=== PATIENT | female | born 1955 | race Caucasian/White ===

== ENCOUNTER 2016-12-14 16:56 | Inpatient (IN) | payer MEDICAID ==
[2016-12-14 17:42] VITALS: BP 120/75
[2016-12-14] MEDS ORDERED: Maalox 30 mL Cup PO PRN (22:57)
[2016-12-14] MEDS ORDERED: Hydrocodone/APAP 5mg/325mg Tab PO PRN (22:57)
[2016-12-14] MEDS ORDERED: Hydrocodone/APAP 10 mg/325 mg Tab PO PRN (22:57)
[2016-12-14] MEDS ORDERED: Magnesium Hydroxide (MOM) 30 mL UDC PO PRN (22:57)
[2016-12-14 23:32] LABS: % BASOPHILS 0.4 % (0.0-2.0); % EOSINOPHILS 3.7 % (0.0-5.0); % LYMPHOCYTES 15.8 % (20.0-50.0); % MONOCYTES 8.4 % (2.0-10.0); % NEUTROPHILS 71.7 % (40.0-80.0); HEMATOCRIT 43.8 % (35.0-45.0); HEMOGLOBIN 14.4 gm/dL (11.7-15.5); MEAN CELL VOLUME 82.4 fl (81-100); MEAN CORPUSCULAR HGB CONC 32.8 pg (28.0-36.0); MEAN PLATELET VOLUME 8.4 fl; NEUTROPHILE ABSOLUTE 5.8 Th/cmm (1.8-8.0); PLATELET COUNT 168 Th/cmm (150-400); RED BLOOD COUNT 5.31 Mil/cmm (3.80-5.10); RED CELL DISTRIBUTION WIDTH 13.9 % (11.5-20.0); WHITE BLOOD COUNT 8.1 Th/cmm (4.8-10.8)
[2016-12-14 23:41] LABS: ALB/GLOB RATIO 1.3 (1.0-1.8); ALKALINE PHOSPHATASE 72 U/L (34-104); ANION GAP 9.6 (7.0-16.0); BILIRUBIN,TOTAL 0.4 mg/dL (0.3-1.0); BUN - UREA NITROGEN 10 mg/dL (7-25); BUN/CREATININE RATIO 14.3; CALCIUM SERUM 8.4 mg/dL (8.6-10.3); CARBON DIOXIDE 27.9 mEq/L (21.0-31.0); CHLORIDE 103 mEq/L (98-107); CREATININE - SERUM 0.7 mg/dL (0.6-1.2); GLUCOSE 151 mg/dL (70-105); POTASSIUM SERUM 3.5 mEq/L (3.5-5.1); SGOT 14 U/L (13-39); SGPT/ALT 16 U/L (7-52); SODIUM SERUM 137 mEq/L (136-145)
[2016-12-14 23:42] LABS: CHOLESTEROL 100 mg/dL (<200); TRIGLYCERIDES 123 mg/dL (<150)
[2016-12-14 23:46] LABS: URINE BACTERIA NONE SEEN /hpf (NONE SEEN); URINE BILIRUBIN NEGATIVE (NEGATIVE); URINE BLOOD NEGATIVE (NEGATIVE); URINE COLOR YELLOW; URINE EPITHELIAL CELLS RARE /lpf (FEW); URINE GLUCOSE (UA) 100 mg/dL (NEGATIVE); URINE KETONE NEGATIVE (NEGATIVE); URINE PROTEIN NEGATIVE (NEGATIVE); URINE RBC NONE SEEN /hpf (0-5); URINE UROBILINOGEN 0.2 E.U./dL (0.2 - 1.0); URINE WBC 0-2 /hpf (0-5)
[2016-12-15 06:20] LABS: % BASOPHILS 1.8 % (0.0-2.0); % EOSINOPHILS 4.6 % (0.0-5.0); % LYMPHOCYTES 13.3 % (20.0-50.0); % NEUTROPHILS 73.3 % (40.0-80.0); HEMATOCRIT 44.2 % (35.0-45.0); HEMOGLOBIN 14.3 gm/dL (11.7-15.5); MEAN CELL VOLUME 82.8 fl (81-100); MEAN CORPUSCULAR HEMOGLOBIN 26.8 pg (27.0-31.0); MEAN CORPUSCULAR HGB CONC 32.3 pg (28.0-36.0); MEAN PLATELET VOLUME 8.2 fl; NEUTROPHILE ABSOLUTE 4.7 Th/cmm (1.8-8.0); PLATELET COUNT 162 Th/cmm (150-400); RED BLOOD COUNT 5.34 Mil/cmm (3.80-5.10); RED CELL DISTRIBUTION WIDTH 13.7 % (11.5-20.0); WHITE BLOOD COUNT 6.4 Th/cmm (4.8-10.8)
[2016-12-15 06:42] LABS: ALB/GLOB RATIO 1.4 (1.0-1.8); ALKALINE PHOSPHATASE 76 U/L (34-104); ANION GAP 8.9 (7.0-16.0); BILIRUBIN,TOTAL 0.5 mg/dL (0.3-1.0); BUN - UREA NITROGEN 11 mg/dL (7-25); BUN/CREATININE RATIO 18.3; CALCIUM SERUM 8.5 mg/dL (8.6-10.3); CARBON DIOXIDE 27.7 mEq/L (21.0-31.0); CHLORIDE 104 mEq/L (98-107); CREATININE - SERUM 0.6 mg/dL (0.6-1.2); GLUCOSE 167 mg/dL (70-105); POTASSIUM SERUM 3.6 mEq/L (3.5-5.1); SGOT 14 U/L (13-39); SGPT/ALT 16 U/L (7-52); SODIUM SERUM 137 mEq/L (136-145)
--- NOTE | 2016-12-15 10:33 | Diagnostic Imaging Report ---
CHEST X-RAY: AP view INDICATION: Shortness of breath COMPARISON: None FINDINGS: Left basal densities noted. No focal consolidation identified. Mild cardiomegaly is noted. Osseous structures are intact. IMPRESSION: Left basal density likely due to superimposition of soft tissues. A small left effusion is considered less likely. If indicated lateral views may also be obtained for further assessment. No focal consolidation identified Mild cardiomegaly.
[2016-12-15] MEDS: INSULIN ASPART SLIDING SCALE 100 UNITS/ML UNIT SUBQ SCH (21:00)
[2016-12-16 06:02] LABS: % BASOPHILS 0.9 % (0.0-2.0); % EOSINOPHILS 5.2 % (0.0-5.0); % LYMPHOCYTES 17.3 % (20.0-50.0); % MONOCYTES 9.8 % (2.0-10.0); % NEUTROPHILS 66.8 % (40.0-80.0); HEMATOCRIT 45.4 % (35.0-45.0); HEMOGLOBIN 15.1 gm/dL (11.7-15.5); MEAN CELL VOLUME 81.7 fl (81-100); MEAN CORPUSCULAR HEMOGLOBIN 27.1 pg (27.0-31.0); MEAN CORPUSCULAR HGB CONC 33.2 pg (28.0-36.0); MEAN PLATELET VOLUME 8.5 fl; NEUTROPHILE ABSOLUTE 4.2 Th/cmm (1.8-8.0); PLATELET COUNT 169 Th/cmm (150-400); RED BLOOD COUNT 5.56 Mil/cmm (3.80-5.10); RED CELL DISTRIBUTION WIDTH 13.9 % (11.5-20.0); WHITE BLOOD COUNT 6.3 Th/cmm (4.8-10.8)
[2016-12-16 06:38] LABS: ANION GAP 7.3 (7.0-16.0); BUN - UREA NITROGEN 10 mg/dL (7-25); BUN/CREATININE RATIO 16.7; CALCIUM SERUM 8.8 mg/dL (8.6-10.3); CARBON DIOXIDE 30.2 mEq/L (21.0-31.0); CHLORIDE 103 mEq/L (98-107); CREATININE - SERUM 0.6 mg/dL (0.6-1.2); GLUCOSE 136 mg/dL (70-105); POTASSIUM SERUM 3.5 mEq/L (3.5-5.1); SODIUM SERUM 137 mEq/L (136-145)
[2016-12-16] MEDS: INSULIN ASPART SLIDING SCALE 100 UNITS/ML UNIT SUBQ SCH ×4 (06:58→21:53)
[2016-12-16] MEDS: Atorvastatin Calcium 10 MG TAB PO SCH (21:52)
[2016-12-17] MEDS: INSULIN ASPART SLIDING SCALE 100 UNITS/ML UNIT SUBQ SCH ×3 (06:33→17:16)
[2016-12-17] MEDS ORDERED: PHENYLEPHRINE TP PRN (16:49)
[2016-12-17] MEDS: Atorvastatin Calcium 10 MG TAB PO SCH (17:26)
--- NOTE | 2016-12-18 10:34 | History & Physical ---
CHIEF COMPLAINT: Chest pain. HISTORY OF PRESENT ILLNESS: The patient is a 61-year-old female who has been transferred from [facility]. The patient was brought into [facility] from [facility]. The patient at the [facility] presented with a constant chest pressure over 2 weeks. Chest pain was 8/10 on pain scale. Nitroglycerin was given which brought her pain down to 3/10. The patient states chest pain is worse with ambulation. Severe shortness of breath. The patient denies nausea and vomiting. The patient's pain improved with aspirin and nitroglycerin. REVIEW OF SYSTEMS: See history of present illness. ALLERGIES: No known allergies. MEDICATIONS: Metformin. PAST MEDICAL HISTORY: Diabetes mellitus type 2, hypertension, hyperlipidemia, depression. PAST SURGICAL HISTORY: Negative. SOCIAL HISTORY: No reports of smoking, drinking or drug abuse. TRAVEL HISTORY: No history of travel in last 21 days. PHYSICAL EXAMINATION: GENERAL: The patient is awake, alert, nontoxic in appearance. VITAL SIGNS: On admission, temperature 97.5, pulse 77, blood pressure 120/75, respiration 18, O2 sat 98% on 2 liters nasal cannula. HEENT: Normocephalic, atraumatic. Extraocular movements intact. Oropharynx clear. NECK: Supple, no thyromegaly. RESPIRATORY: Clear. No wheeze or rhonchi. GASTROENTEROLOGY: Soft, nontender. Positive bowel sounds. GENITOURINARY: No CVA tenderness or suprapubic tenderness. BACK: No midline tenderness. EXTREMITIES: Equal pulses bilaterally. No cyanosis, clubbing or edema. SKIN: Negative. NEUROLOGIC: Cranial nerves 2-12 intact. Extraocular movements are intact. Sensation intact. Motor strength intact. Bilateral muscle grossly intact. EKG performed at the [facility] showed no significant abnormality. LABORATORY DATA: On admission, hematology, WBC of 8.1, hemoglobin 14.4, hematocrit 43.8, platelet count of 168, 15% lymphocytes. Chemistry: Sodium 137, potassium 3.5, chloride per labs, bicarbonate per labs, BUN 10, creatinine 0.7. GFR is more than 60. Glucose is 151, calcium 8.4, total bilirubin 0.4, AST is 14, ALT 16, alkaline phosphatase is 72. Troponin 0.01. Total protein 6.4, albumin 3.6, globulin is 2.8. Liver panel, triglycerides 123, cholesterol 100, LDL 62 and HDL is 29. Urinalysis shows 100 glucose. MICROBIOLOGY: No new microbiology results. RADIOLOGY: No new radiological results. IMPRESSION: 1. Chest pain. 2. Rule out acute coronary syndrome. 3. Diabetes mellitus, type 2. 4. Hypertension. 5. Hyperlipidemia. 6. Depression. 7. Respiratory failure (acute). PLAN: The patient admitted to telemetry unit. We will obtain chest x-ray. Cardiology consultation with Dr. Mackey. We will obtain Pulmonary consultation if needed. Further recommendations per consults. JOB# [id number] MAMTA
--- NOTE | 2016-12-20 19:42 | Discharge Summary ---
HOSPITAL COURSE: The patient is a 61-year-old female who was admitted in 12/14/2016. The patient initially presented to [facility] ER with complaints of chest pain. The patient was transferred to [facility] with admission diagnoses of chest pain, rule out acute coronary syndrome, diabetes mellitus type 2, hypertension, hyperlipidemia, depression, respiratory failure (acute). The patient was admitted to Telemetry Unit. Cardiology consultation with Dr. Gay Mackey. ____ cardiac enzymes were negative. Chest x-ray, 12/15/2016 showed no focal consolidation. After clearance by Cardiology, the patient was discharged home on 12/17/2016. [facility]# [id number]
== END 2016-12-17 18:45 | disposition home or self-care (01) | DRG 198 ==
LOC: TELE 16:56
PROVIDERS: ADMIT Preventive Medicine Preventive Medicine/Occupational Environmental Medicine; ATTEND Preventive Medicine Preventive Medicine/Occupational Environmental Medicine
DX: I24.9 Acute ischemic heart disease, unspecified (principal); J96.00 Acute respiratory failure, unspecified whether with hypoxia or hypercapnia; E11.9 Type 2 diabetes mellitus without complications; I10 Essential (primary) hypertension; E78.5 Hyperlipidemia, unspecified; F32.9 Major depressive disorder, single episode, unspecified; R07.9 Chest pain, unspecified
CPT/HCPCS: 36415-UA; 71010-TC; 80048-TC; 80053-TC; 80061-TC; 81001-TC; 82948-90; 84443-TC; 84484-TC; 85025-TC; 93005; 94760; J1644; J1815; Z7610